=== PATIENT | female | born 1975 | race Caucasian/White ===

== ENCOUNTER 2023-06-13 21:18 | Observation (INO) | payer BC ==
[~2023-06-13] VITALS: Ht 160 cm; Wt 78.0 kg
[2023-06-13] MEDS ORDERED: 0.9%NACL 1000ML 1,000 ML IV ONE (22:00)
[2023-06-13 22:12] LABS: BASOPHILS # (AUTO) 0.05 K/uL (0.00-0.20); BASOPHILS % (AUTO) 0.6 % (0.0-5.0); EOSINOPHILS % (AUTO) 1.2 % (0.0-8.0); HEMATOCRIT 40.3 % (36-48); IMMATURE GRANULOCYTE ABSOLUTE 0.02 K/uL (0-1); LYMPHOCYTES # (AUTO) 1.8 K/uL (1.0-4.8); LYMPHOCYTES % (AUTO) 21.6 % (21.0-51.0); MEAN CORPUSCULAR HEMOGLOBIN 32.1 pg (27.0-33.0); MEAN CORPUSCULAR HGB CONC 34.2 g/dL (32.0-36.0); MEAN CORPUSCULAR VOLUME 93.7 fL (79-99); MONOCYTES # (AUTO) 0.7 K/uL (0.1-1.0); MONOCYTES % (AUTO) 8.2 % (3.0-13.0); NEUTROPHILS # (AUTO) 5.6 K/uL (1.8-7.7); NEUTROPHILS % (AUTO) 68.2 % (40.0-77.0); PLATELET COUNT (AUTO) 403 K/uL (130-400); RED CELL DISTRIBUTION WIDTH 12.1 % (11.0-15.5); WHITE BLOOD COUNT (AUTO) 8.2 K/uL (4.8-10.8)
[2023-06-13 22:40] LABS: ALBUMIN 3.7 g/dL (3.5-5.0); BILIRUBIN,TOTAL 0.6 mg/dL (0.2-1.0); POTASSIUM 3.8 mmol/L (3.5-5.1); TOTAL PROTEIN, SERUM 7.8 g/dL (6.0-8.3)
[2023-06-13 22:57] LABS: APPEARANCE,URINE CLEAR (CLEAR); BILIRUBIN,URINE NEGATIVE (NEGATIVE); COLOR,URINE LIGHT-YELLOW (YELLOW); GLUCOSE, URINE (UA) NEGATIVE (NEGATIVE); KETONES,URINE 5 mg/dL (NEGATIVE); LEUKOCYTE ESTERASE ,URINE NEGATIVE Leu/uL (NEGATIVE); NITRATE,URINE NEGATIVE (NEGATIVE); OCCULT BLOOD,URINE NEGATIVE (NEGATIVE); PH,URINE 5.5 (5.0-8.0); PROTEIN,URINE 10 mg/dL (NEGATIVE); UROBILINOGEN,URINE 0.2 mg/dL (0.2-1.0)
[2023-06-13 23:00] LABS: ADD UA MICROSCOPIC NO
[2023-06-14] MEDS ORDERED: ASPIRIN 81MG CHEW TAB PO ONE
[2023-06-14] MEDS ORDERED: ENOXAPARIN SODIUM 100 MG/1 ML SQ ONE (00:30)
[2023-06-14] MEDS ORDERED: LACTATED RINGERS 1000ML 1,000 ML IV SCH (01:30)
[2023-06-14] MEDS ORDERED: GUAIFENESIN-DM 200/20 MG 10 ML PO PRN (01:30)
[2023-06-14] MEDS ORDERED: NITROGLYCERIN 0.4 MG SL TAB SL PRN ×2 (01:30)
[2023-06-14] MEDS ORDERED: ACETAMINOPHEN 325 MG TAB PO PRN ×2 (01:30)
[2023-06-14] MEDS ORDERED: LACTULOSE 20 GM/30 ML UDCUP PO PRN (01:30)
[2023-06-14] MEDS ORDERED: MAG/ALUM/SIMETH 30 ML UDCUP PO PRN (01:30)
[2023-06-14] MEDS ORDERED: ONDANSETRON 4MG INJ IV PRN (01:30)
[2023-06-14] MEDS ORDERED: MVIT PO (01:38)
[2023-06-14] MEDS ORDERED: NORE-8 PO (01:43)
[2023-06-14 03:06] LABS: AMPHET/METH SCREEN,URINE NEGATIVE (NEGATIVE); BARBITURATE SCREEN, URINE NEGATIVE (NEGATIVE); BENZODIAZEPINES SCREEN,URINE NEGATIVE (NEGATIVE); CANNABINOID SCREEN,URINE NEGATIVE (NEGATIVE); COCAINE SCREEN,URINE NEGATIVE (NEGATIVE); OPIATE SCREEN,URINE NEGATIVE (NEGATIVE); PHENCYCLIDINE SCREEN,URINE NEGATIVE (NEGATIVE)
[2023-06-14 07:55] VITALS: BP 117/77; PULSE 70; RESP 19; O2SAT 100
[2023-06-14] MEDS ORDERED: FAMOTIDINE 20MG TAB PO SCH (09:00)
[2023-06-14] MEDS ORDERED: ENOXAPARIN SODIUM 80 MG/0.8 ML SQ SCH (09:00)
[2023-06-14] MEDS ORDERED: ASPIRIN 325MG EC TAB PO SCH (09:00)
[2023-06-14 09:18] LABS: THYROID STIMULATING HORMONE 3.86 uIU/mL (0.36-3.74)
[2023-06-14 11:45] VITALS: BP_SYST 109; BP_SYST 121; BP_DIAS 65; BP_DIAS 67; BP_DIAS 75; PULSE 64; RESP 20
[2023-06-14 15:00] VITALS: BP 118/76; PULSE 78; RESP 20
[2023-06-14] MEDS ORDERED: COLC0.6C3 PO (15:33)
[2023-06-15] MEDS ORDERED: ENOXAPARIN SODIUM 40 MG/0.4 ML SYRINGE SQ SCH (09:00)
[2023-06-18 16:11] LABS: COXSACKIE A16 IGM Negative titer (Neg:<1:10); COXSACKIE A24 IGM Negative titer (Neg:<1:10); COXSACKIE A7 IGM Negative titer (Neg:<1:10); COXSACKIE A9 IGM Negative titer (Neg:<1:10)
== END 2023-06-14 17:15 | disposition home or self-care (01) ==
LOC: EDH 21:18 → EDHIP 21:19 → UNDOADMOB 06-14 01:06 → EDHIP 06-14 01:06 → 4CH 06-14 06:23 → EDHIP 06-14 06:23 → UNDODISOB 06-14 17:15
PROVIDERS: ADMIT Internal Medicine Critical Care Medicine; ATTEND Internal Medicine Critical Care Medicine
DX: R55 Syncope and collapse (principal); E03.9 Hypothyroidism, unspecified; R32 Unspecified urinary incontinence; Z79.899 Other long term (current) drug therapy
CPT/HCPCS: 96360; 99285; 82550 ×4; 83874 ×4; 84484 ×4; 80053; 85025; 85378; 81003; 36415 ×2; 71045; 70450; 93005; 96372; 96361; 84443; 80305; 84439; 86658 ×2; 93306; 93356; 93880; G0378 ×19; J7030; J1650 ×2

== ENCOUNTER → 2023-07-23 | Outpatient (CLI) | payer BC ==
[~2023-07-23] MED LIST: COLC0.6C3 PO; IOHEXOL 350 MG/ML 100ML INFUS..BTL IV ONE; METOPROLOL TARTRATE 1 MG/ML 5ML VIAL IV ONE; MVIT PO; NORE-8 PO
== END | disposition home or self-care (01) ==
LOC: RAH 08:40
PROVIDERS: ATTEND Student in an Organized Health Care Education/Training Program
DX: R55 Syncope and collapse (principal)
CPT/HCPCS: 75574; J3490; Q9967